=== PATIENT | female | born 1950 | race Caucasian/White ===

== ENCOUNTER → 2017-10-13 | Outpatient (CLI) | payer MEDICARE ==
[2017-06-16 10:35] VITALS: BMI 40.6
[~2017-10-13] MED LIST: ACIT25CA PO; ACIT25CA2 PO; AMOX500T10 PO; AMPI250C65 PO; CHOL10005 PO; ESOM20CA31 PO; HYDR-2966 PO; HYDR12.561 PO; IPRA15SP7 NS; LEV112 PO; LEVO-3 PO; LEVO-85 PO; LOSA50TA72 PO; MAGN100T2 PO; METO50TA19 PO; POTA-22 PO; SODI454P10 MC; TRAM-420 PO; TRIA5PAS12 TOP; VIT-9 PO; [UNRECOGNIZED DRUG - CODE] IV; [UNRECOGNIZED DRUG - CODE] PO
[2017-10-13 13:53] LABS: PLATELET COUNT, AUTOMATED 328 K/uL (150-450)
== END ==
LOC: LAB 13:35
PROVIDERS: ATTEND Internal Medicine Nephrology
DX: I15.0 Renovascular hypertension (principal); N18.4 Chronic kidney disease, stage 4 (severe); E87.2 Acidosis
CPT/HCPCS: 36415; 82040; 82306; 82310; 82374; 82435; 82565; 82947; 83970; 84100; 84132; 84295; 84520; 85025

== ENCOUNTER 2017-10-23 00:41 | Day surgery (SDC) | payer MEDICARE ==
[2017-06-16 10:35] VITALS: Ht 165.1 cm; Wt 113.9 kg
[~2017-10-23] VITALS: Ht 165.1 cm; Wt 113.9 kg
[2017-10-23] MEDS ORDERED: LIDOCAINE/SOD BICARB 8.4% SYR ID ONE (11:30)
[2017-10-23] MEDS ORDERED: NORMOSOL R SOLN(*) 1000 ML BAG 1,000 ML IV PRN (11:30)
[2017-10-23] MEDS ORDERED: OPHTHALMIC PROCEDURE 1 OU PRN (11:30)
[2017-10-23] MEDS ORDERED: OPHTHALMIC PROCEDURE 2 OU PRN ×2 (11:30)
[2017-10-23] MEDS ORDERED: MIDAZOLAM 2 MG/2 ML VIAL IVP PRN (11:30)
[2017-10-23 13:13] VITALS: BP 130/64
[2017-10-23 16:00] VITALS: BP 159/89
--- NOTE | 2017-10-23 18:12 | FOSTER LEFT EYE CATARACT ---
EVENT DATE: October 23, 2017 SURGEON: Chano Oropeza MD ANESTHESIOLOGIST: Fredo Montoya MD ANESTHESIA: MAC PREOPERATIVE DIAGNOSIS Cataract, left eye. POSTOPERATIVE DIAGNOSIS Cataract, left eye. PROCEDURE Phacoemulsification of cataractous lens with implantation of an intraocular lens , left eye. DESCRIPTION OF PROCEDURE The risks and benefits and alternatives were carefully discussed with the patient, and preoperative consent was obtained. The patient was brought to the operating room, after receiving topical anesthetic. The patient was prepped and draped using sterile technique in the usual manner. A stab incision was made and the chamber was inflated with preservative-free lidocaine. DuoVisc was injected to inflate the chamber. A 2.2 mm blade was used to enter the anterior chamber. Utrata forceps were used to tear a circular capsulorrhexis. BSS was used to hydrodissect the nucleus. Phaco tip was introduced and the nucleus was chopped into four quadrants. Each quadrant was removed. The I/A tip was used to remove the cortex. The bag was inflated with ProVisc. The intraocular lens was injected into the capsular bag. The I/A tip was used to remove the ProVisc. The wound was found to be watertight. Vigamox, Nevanac and Maxitrol ointment were placed in the patient's eye. The patient's eye was patched and the patient was taken to the recovery room in stable condition. The patient was examined in the recovery room and found to be stable, prior to release from the hospital. CORINNA
== END 2017-10-23 16:21 | disposition home or self-care (01) ==
LOC: OR 00:41
PROVIDERS: ATTEND Ophthalmology
DX: H25.812 Combined forms of age-related cataract, left eye (principal); Z96.1 Presence of intraocular lens
CPT/HCPCS: 66984; V2632

== ENCOUNTER → 2017-10-28 | Outpatient (CLI) | payer MEDICARE ==
[2017-06-16 10:35] VITALS: BMI 40.6
== END ==
LOC: LAB 13:45
PROVIDERS: ATTEND Otolaryngology
DX: K13.79 Other lesions of oral mucosa (principal)
CPT/HCPCS: 88305

== ENCOUNTER → 2018-03-23 | Outpatient (CLI) | payer MEDICARE ==
[2017-06-16 10:35] VITALS: BMI 40.6
[2018-03-23 09:54] LABS: PLATELET COUNT, AUTOMATED 301 K/uL (150-450)
== END ==
LOC: LAB 09:05
PROVIDERS: ATTEND Internal Medicine Nephrology
DX: N18.4 Chronic kidney disease, stage 4 (severe) (principal); N11.9 Chronic tubulo-interstitial nephritis, unspecified; E87.2 Acidosis
CPT/HCPCS: 36415; 82040; 82310; 82374; 82435; 82565; 82570; 82947; 84100; 84132; 84156; 84295; 84520; 85025

== ENCOUNTER → 2018-05-12 | Outpatient (REF) | payer MEDICARE ==
[2017-06-16 10:35] VITALS: BMI 40.6
== END ==
LOC: ZZSENDIN 16:13
PROVIDERS: ATTEND Family Medicine
DX: Z01.812 Encounter for preprocedural laboratory examination (principal)
CPT/HCPCS: 81001

== ENCOUNTER 2018-06-15 00:50 | Observation (INO) | payer MEDICARE ==
[2018-06-14 14:24] LABS: INR 0.99
[2018-06-15] VITALS (16 sets, daily range): BP systolic 120–170; BP diastolic 63–109
[~2018-06-15] VITALS: Ht 165.1 cm; Wt 117.0 kg
[~2018-06-15 00:50] MED LIST changes: +AMOX-359 PO; -LOSA50TA72 PO; +LOSA50TA74 PO
[2018-06-15] MEDS ORDERED: DEXAMETHASONE SOD 4 MG/ML VIAL ONE (07:14)
[2018-06-15] MEDS ORDERED: LIDOCAINE MPF 1% 5 ML VIAL ONE (07:14)
[2018-06-15] MEDS ORDERED: fentaNYL CITR 100 MCG/2 ML AMP ONE ×2 (07:14→12:09)
[2018-06-15] MEDS ORDERED: ONDANSETRON 4 MG/2 ML VIAL ONE (07:14)
[2018-06-15] MEDS ORDERED: PROPOFOL EMUL(*) 10MG/ML 20 ML 20 ML ONE (07:14)
[2018-06-15] MEDS ORDERED: KETAMINE HCL-NS 50 MG/5 ML SYR ONE (07:15)
[2018-06-15] MEDS ORDERED: BACITRACIN 50000 UNIT/VIAL 100,000 UNIT in NS 0.9% 3000 ML IRRIGATION BAG 3,000 ML IR ONE (08:30)
[2018-06-15] MEDS ORDERED: MIDAZOLAM 2 MG/2 ML VIAL IVP PRN (08:30)
[2018-06-15] MEDS ORDERED: cloNIDine EPIDUR INJ 100MCG/ML 40 MCG, ROPIVACAINE 0.5% 20 ML VIAL 25 ML, EPINEPHrine H... INJ ONE (08:30)
[2018-06-15] MEDS ORDERED: TRANEXAMIC AC 1000 MG/10ML SDV 1,000 MG in DEXTROSE 5% 50 ML BAG 50 ML IV ONE (08:30)
[2018-06-15] MEDS ORDERED: LIDOCAINE/SOD BICARB 8.4% SYR ID ONE (08:30)
[2018-06-15] MEDS ORDERED: ceFAZolin(*) 2GM/D5W 50ML 50 ML IVPB ONE (08:30)
[2018-06-15] MEDS ORDERED: PREGABALIN 150 MG CAPSULE PO ONE (08:30)
[2018-06-15] MEDS ORDERED: NORMOSOL R SOLN(*) 1000 ML BAG 1,000 ML IV PRN (08:30)
[2018-06-15] MEDS ORDERED: ACETAMINOPHEN 500 MG TAB PO ONE (08:30)
[2018-06-15] MEDS ORDERED: GLYCOPYRROLATE 0.2MG/ML 1 ML INJ ONE (10:15)
[2018-06-15] MEDS ORDERED: LR 1000 ML BAG 1000 ML IV PRN (11:45)
[2018-06-15] MEDS ORDERED: diphenhydrAMINE 50 MG/ML VIAL IVP PRN (11:45)
[2018-06-15] MEDS ORDERED: FLUSH 10 ML SYR IVP PRN (11:45)
[2018-06-15] MEDS ORDERED: MAGNESIUM CITRATE 300 ML BTL PO PRN (11:45)
[2018-06-15] MEDS ORDERED: diphenhydrAMINE 25 MG CAP PO PRN (11:45)
[2018-06-15] MEDS ORDERED: ONDANSETRON 4 MG/2 ML VIAL IVP PRN (11:45)
[2018-06-15] MEDS ORDERED: PROMETHAZINE 25 MG/ML 1 ML AMP IVP PRN (11:45)
[2018-06-15] MEDS ORDERED: MAGNESIUM HYDROXIDE* 30ML UDCP PO PRN (11:45)
[2018-06-15] MEDS ORDERED: ZOLPIDEM TARTRATE 5 MG TAB PO PRN (11:45)
[2018-06-15] MEDS ORDERED: HYDROmorphone HCL 2 MG/ML SDV IVP PRN (11:45)
[2018-06-15] MEDS ORDERED: BISACODYL 10 MG SUPP PR PRN (11:45)
--- NOTE | 2018-06-15 12:50 | RADIOLOGY IMAGING REPORT ---
FACILITY: [facility] - [place], [place] PATIENT NAME: Steffi Ballard : 1950 MR: [id number] V: [id number] EXAM DATE: ORDERING PHYSICIAN: LYNDA JEROME TECHNOLOGIST: Location: [facility] - [place] Patient: Steffi Ballard : 1950 Visit/Account:[id number] Date of Sevice: 06/15/2018 Right knee Indication: Postop total knee Comparison: X-ray examination right knee November 28, 2014. Findings: Two views demonstrate anatomic alignment status post right total knee arthroplasty. Components are w ell seated. Expected soft tissue changes. IMPRESSION: 1. Expected postoperative appearance status post right total knee arthroplasty Report Dictated By: Gregory Rehman MD at 06/15/2018 12:45 PM Report E-Signed By: Gregory Rehman MD at 06/15/2018 12:46 PM WSN:[id number]
--- NOTE | 2018-06-15 13:03 | OPERATIVE REPORT 1 ---
EVENT DATE: June 15, 2018 SURGEON: Kobe Hills MD ANESTHESIOLOGIST: Fredo Montoya MD ANESTHESIA: General plus spinal. [employer]ATION: Evens Leyva PA-C PREOPERATIVE DIAGNOSIS Right knee osteoarthritis. POSTOPERATIVE DIAGNOSIS Right knee osteoarthritis. PROCEDURE PERFORMED Right total knee arthroplasty. FINDINGS The patient had significant amount of arthritic changes associated with her knee, but was amenable for a total knee replacement. ESTIMATED BLOOD LOSS 300 mL. DRAINS None. COMPLICATIONS None. TOURNIQUET TIME 17 minutes. IMPLANTS USED DePuy DialMyAppune system, posterior stabilized size 5 right cemented femur, with a size 5 revision rotating platform tibial with a long stem, a 5 x 5 rotating platform posterior stabilized insert and a 32 mm anatomic patella. SPECIMENS None. INDICATIONS AND HISTORY This patient is a 68-year-old female who presented to my clinic for evaluation of bilateral knee pain and irritation, but more on the right than on the left. She continued to have pain and irritation despite conservative management, so she wanted to go ahead with a right total knee arthroplasty to be done today 06/15/2018. The risk and benefits were discussed with the patient and informed consent was obtained at the last clinic visit. We got her set up to do this and she understood that given her weight and activity levels and also the issues associated with her bone, that she may need a revision at some point and she understood the risks associated with that. DESCRIPTION OF PROCEDURE As the patient was brought in the operating room, she was given a spinal by anesthesia and then put in spine position. Once she was in the supine position, we were then able to induce and intubate her without any difficulty. We were able to prep and drape the right leg without any difficulty. A timeout was observed verifying the correct patient and procedure. After prep and drape we were then able to make a longitudinal incision along the anterior aspect of the knee itself. I was able to go through the skin and subcutaneous tissue which there was a lot of subcutaneous tissue in this area and then get down to the quad. Once I was down to the quad and over the knee cap, I then made a medial parapatellar approach without any difficulty and cauterized the bleeders on the way through. Once I was able to do this, I was then able to remove the anterior fat pad as well as the menisci and anterior aspects of the medial and latera sides and then I was able to get some retractors in this area and remove some of the synovitis over the superior patellar pouch. I then subluxed the patella off to the side and then was able to flex the knee in order to gain access to the femur. I then cut out the ACL and most of the PCL without any major difficulty and some of the posterior structures. I then prepped the femur for an intramedullary guide from the Attune system. Once I got the intramedullary guide, I then cut 9 mm off the distal femur more on the medial side than lateral side as the lateral size was where most of the arthritis was. I then sized the femur to a size 5 and then put in the four-in-one cutting block, cut the four cuts without any difficulty and then was able to cut the notch without any major issues. Once I did this, I then turned attention back to the tibia and after removing some of the posterior aspects off the femur. Once on the tibia, I was then able to drill the intramedullary guide once again and then take 2 mm off the lateral side to make a thin tibial cut. Once I did this, I was then able to size it to a 5 tibia. We did use the revision stem secondary due to the patient's weight and also the the small bone structure and soft bone structure associated with this with the stem in order to help this out. Once we were able to do this, I then prepped the tibia without any difficulty using the Attune system from the revision platform. I then trialed the 5 mm rotating platform poly. This had good flexion and extension and no signs of instability associated with it and so therefore this was the final poly chosen. I then prepped the patella without any major difficulty for a 32 anatomic patella. She had a very thin patella. I then was able to put an Esmarch up and then exsanguinated the limb and then put the tourniquet up in order to cement in the components. Once all of the components were put in place and cemented, I removed all the excess cement, held it in extension until the cement hardened, and then let the tourniquet down after 17 minutes. I was then able to close the medial parapatellar approach with a 0 Stratafix then followed by 2-0 Vicryl in the fat layer and then 2-0 Stratafix in the subcutaneous layer and then subcuticular 4-0 running Monocryl with a bio-occlusive dressing put over the outside. The patient was then awakened and extubated and transferred to the PACU in stable condition. We had washed her out with a antibiotic saline solution all throughout the entire case using pulsatile lavage. CORINNA
--- NOTE | 2018-06-15 14:05 | Hospitalist Consultation ---
History of Present Illness Requesting Physician Dr. Hills Reason for Consult Medical Management Chief Complaint s/p right total knee replacement History of Present Illness She was admitted s/p right total knee replacement. It is reported the surgery went well and without complication. History Problems: (1) GERD (gastroesophageal reflux disease) Status: Chronic (2) HTN (hypertension) Status: Chronic (3) Hypothyroidism Status: Chronic (4) Psoriasis Status: Chronic (5) Chronic renal failure Status: Chronic Home Meds Active Scripts Potassium Citrate (UROCIT-K) 10 Meq Tablet.er, 20 MEQ PO DAILY, #180 TAB Prov:LYNSEY CAMPBELL MD 08/06/16 Levothyroxine Sodium (LEVOTHYROXINE SODIUM) 0.112 Mg Tab, 0.112 MG PO QDAY, #30 TAB Prov:YUMIKO CAMPBELL MD 08/05/16 Reported Medications Amoxicillin (AMOXICILLIN) 250 Mg Capsule, 1 CAP PO QDAY, #15 CAPSULE 06/11/18 Vit A/Vit C/Vit E/Zinc/Copper (PRESERVISION AREDS TABLET) 1 Each Tablet, 2 EACH PO DAILY 06/16/17 Cholecalciferol (Vitamin D3) (VITAMIN D3) 1,000 Unit Tablet, 2000 UNIT PO DAILY, TAB 06/11/17 Sodium Bicarbonate (SODIUM BICARBONATE) 454 Gm Powder, 20 GM MC BID with meals 06/11/17 Acitretin (SORIATANE) 25 Mg Capsule, 25 MG PO QODAY, CAPSULE 06/11/17 Metoprolol Succinate (METOPROLOL SUCCINATE) 50 Mg Tab.er.24h, 25 MG PO QDAY, TAB 05/27/17 Hydrochlorothiazide (HYDROCHLOROTHIAZIDE) 25 Mg Tablet, 1 TAB PO QDAY, TAB 05/27/17 Esomeprazole Magnesium (NEXIUM) 20 Mg Capsule.dr, 1 CAP PO QDAY, CAP 08/05/16 Allergies: Coded Allergies: tramadol (Verified Allergy, Severe, NAUSEA/VOMITING, 06/11/18) Sulfa (Sulfonamide Antibiotics) (Verified Allergy, Intermediate, 06/11/18) HEADACHE ibuprofen (Verified Adverse Reaction, Mild, 06/11/17) pt not allowed to use because of kidney issues. codeine (Verified Adverse Reaction, Unknown, NAUSEA, 06/11/18) HEADACHE Patient History: Lymphoma MOTHER Hx Smoking: No Smoking Status: Never Smoker Caffeine Intake: Coffee Caffeine/Cups Per Day: 1 CUP A DAY Hx Alcohol Use: No Hx Substance Use Disorder: No Social Drug Use: Never History of IV Drug Use: No Review of Systems All Systems Reviewed/Normal: Yes, Except as Noted Exam Vital Signs Vital Signs Date Time Temp Pulse Resp B/P (MAP) Pulse Ox O2 Delivery O2 Flow Rate FiO2 06/15/18 13:18 96.4 57 20 161/88 (112) 100 Nasal Cannula 2.0 General Appearance: Alert, Awake, No Acute Distress, Afebrile Neuro: No Gross deficits Cardiovascular: Regular Rate and Rhythm Respiratory: No Respiratory Distress, Clear to Auscultation GI: Abd Soft and Non-Tender Psych: Alert & Oriented X3, Appropriate Mood & Affect Assessment and Plan Problems: (1) Status post total right knee replacement Status: Acute Assessment & Plan: Followed by Dr. Hills. She will be placed on Aspirin for DVT prophylaxis. She has no history of DVT or PE. (2) HTN (hypertension) Status: Chronic Assessment & Plan: She is on chronic treatment with Metoprolol and Hydrochlorothiazide. Metoprolol has been restarted with hold parameters. (3) GERD (gastroesophageal reflux disease) Status: Chronic Assessment & Plan: She is on chronic treatment with Nexium. She has been restarted on Protonix during admission. (4) Chronic renal failure Status: Chronic Assessment & Plan: She is on chronic treatment with Sodium Bicarb. Creatinine prior to surgery 1.8. Recheck BMP in the morning. (5) Psoriasis Status: Chronic Assessment & Plan: She is on chronic treatment with Soriatane. This has been held at this time. (6) Hypothyroidism Status: Chronic Assessment & Plan: She is on chronic treatment with Levothyroxine. Venous Thromboembolism Antithrombotics Is Pt On Any Antithrombotics?: No Problem Qualifiers (1) HTN (hypertension): Hypertension type: essential hypertension Qualified Codes: I10 - Essential (primary) hypertension (2) Chronic renal failure: Chronic kidney disease stage: stage 3 (moderate) Qualified Codes: N18.3 - Chronic kidney disease, stage 3 (moderate) MELI GERARDOP Jun 15, 2018 14:05
[2018-06-15] MEDS ORDERED: NS(*) 0.9% 250 ML BAG 250 ML ONE (17:37)
[2018-06-15] MEDS: ceFAZolin(*) 2GM/D5W 50ML 50 ML IVPB SCH (17:41)
[2018-06-15] MEDS: ASPIRIN 325 MG TAB PO SCH (21:25)
[2018-06-16] MEDS: ceFAZolin(*) 2GM/D5W 50ML 50 ML IVPB SCH ×2 (01:34→09:39)
[2018-06-16 03:10] VITALS: BP 154/72
[2018-06-16] MEDS: LEVOTHYROXINE SOD 0.112 MG TAB PO SCH (05:57)
[2018-06-16 07:57] VITALS: BP 146/69
--- NOTE | 2018-06-16 09:12 | Hospitalist Progress Note ---
Subjective Progress Notes Subjective She has no complaints this morning. She had no acute events overnight. Patient Complains of: Cardiovascular: No: Chest Pain Respiratory: No: Shortness of Breath Physical Exam Vital Signs Date Time Temp Pulse Resp B/P (MAP) Pulse Ox O2 Delivery O2 Flow Rate FiO2 06/16/18 07:58 93 Nasal Cannula 0.5 06/16/18 07:57 98.6 73 16 146/69 (94) Intake and Output 06/16/18 07:00 Intake Total 4880 ml Balance 4880 ml Intake Oral 480 ml IV Total 2250 ml Other 2150 ml # Voids 2 # Bowel Movements 1 General Appearance: Alert, Awake, No Acute Distress, Afebrile Neuro: No Gross deficits Cardiovascular: Regular Rate and Rhythm Respiratory: No Respiratory Distress, Clear to Auscultation GI: Soft and Non-Tender Psych: Alert & Oriented X3, Appropriate Mood & Affect Result Diagram: 06/16/18 0552 06/16/18 0552 Assessment and Plan Problems: (1) Status post total right knee replacement Status: Acute Assessment & Plan: Followed by Dr. Hills. She will be placed on Aspirin for DVT prophylaxis. She has no history of DVT or PE. (2) HTN (hypertension) Status: Chronic Assessment & Plan: She is on chronic treatment with Metoprolol and Hydrochlorothiazide. Metoprolol has been restarted with hold parameters. (3) GERD (gastroesophageal reflux disease) Status: Chronic Assessment & Plan: She is on chronic treatment with Nexium. She has been restarted on Protonix during admission. (4) Chronic renal failure Status: Chronic Assessment & Plan: She is on chronic treatment with Sodium Bicarb. Creatinine prior to surgery 1.8. Creatinine 1.6 this morning. (5) Psoriasis Status: Chronic Assessment & Plan: She is on chronic treatment with Soriatane. This has been held at this time. (6) Hypothyroidism Status: Chronic Assessment & Plan: She is on chronic treatment with Levothyroxine. (7) H/O ureteroileostomy Assessment & Plan: She did have trouble urinating last night, but now has resolved. Continue to monitor. Exam Sepsis Risk: No Definite Risk Problem Qualifiers (1) HTN (hypertension): Hypertension type: essential hypertension Qualified Codes: I10 - Essential (primary) hypertension (2) Chronic renal failure: Chronic kidney disease stage: stage 3 (moderate) Qualified Codes: N18.3 - Chronic kidney disease, stage 3 (moderate) MELI GERARDO Jun 16, 2018 09:12
[2018-06-16 09:36] VITALS: Ht 165.1 cm; Wt 117.0 kg
[2018-06-16] MEDS: METOPROLOL SUCC XL 25 MG TABCR PO SCH ×2 (09:38→20:25)
[2018-06-16] MEDS: AMOXICILLIN 250 MG CAP PO SCH (09:38)
[2018-06-16] MEDS: PANTOPRAZOLE SOD 40 MG TABEC PO SCH (09:38)
[2018-06-16] MEDS: SODIUM BICARBONATE 650 MG TAB PO SCH ×2 (09:39→12:17)
[2018-06-16 11:26] VITALS: BP 151/83
[2018-06-16 14:39] VITALS: BP 149/80
[2018-06-16 19:11] VITALS: BP 128/65
[2018-06-16] MEDS: ASPIRIN 325 MG TAB PO SCH (20:23)
[2018-06-17] VITALS (8 sets, daily range): BP systolic 133–185; BP diastolic 69–85
[2018-06-17] MEDS: LEVOTHYROXINE SOD 0.112 MG TAB PO SCH (05:50)
[2018-06-17] MEDS: PANTOPRAZOLE SOD 40 MG TABEC PO SCH (08:10)
[2018-06-17] MEDS: SODIUM BICARBONATE 650 MG TAB PO SCH ×2 (08:11→11:59)
[2018-06-17] MEDS: AMOXICILLIN 250 MG CAP PO SCH (08:11)
[2018-06-17] MEDS ORDERED: ASPI-757 PO (09:55)
--- NOTE | 2018-06-17 10:00 | Hospitalist Progress Note ---
Subjective Progress Notes Subjective She has no complaints this morning. She had no acute events overnight. Patient Complains of: Cardiovascular: No: Chest Pain Respiratory: No: Shortness of Breath Physical Exam Vital Signs Date Time Temp Pulse Resp B/P (MAP) Pulse Ox O2 Delivery O2 Flow Rate FiO2 06/17/18 08:03 98.3 74 20 143/69 (93) 94 Nasal Cannula 1.0 Intake and Output 06/17/18 01:00 Intake Total 820 ml Balance 820 ml Intake Oral 720 ml IV Total 100 ml # Voids 3 # Bowel Movements 1 General Appearance: Alert, Awake, No Acute Distress, Afebrile Neuro: No Gross deficits Cardiovascular: Regular Rate and Rhythm Respiratory: No Respiratory Distress, Clear to Auscultation Psych: Alert & Oriented X3, Appropriate Mood & Affect Result Diagram: 06/17/1852106/16/18 0552 Assessment and Plan Problems: (1) Status post total right knee replacement Status: Acute Assessment & Plan: Followed by Dr. Hills. She will be placed on Aspirin for DVT prophylaxis. She has no history of DVT or PE. (2) HTN (hypertension) Status: Chronic Assessment & Plan: She is on chronic treatment with Metoprolol and Hydrochlorothiazide. Both medications have been restarted with hold parameters. (3) GERD (gastroesophageal reflux disease) Status: Chronic Assessment & Plan: She is on chronic treatment with Nexium. She has been restarted on Protonix during admission. (4) Chronic renal failure Status: Chronic Assessment & Plan: She is on chronic treatment with Sodium Bicarb. Creatinine prior to surgery 1.8. Creatinine 1.6 post-operatively. (5) Psoriasis Status: Chronic Assessment & Plan: She is on chronic treatment with Soriatane. She will resume like usual when she gets home. (6) Hypothyroidism Status: Chronic Assessment & Plan: She is on chronic treatment with Levothyroxine. (7) H/O ureteroileostomy Assessment & Plan: She did have trouble urinating after surgery, but now has resolved. Exam Sepsis Risk: No Definite Risk Problem Qualifiers (1) HTN (hypertension): Hypertension type: essential hypertension Qualified Codes: I10 - Essential (primary) hypertension (2) Chronic renal failure: Chronic kidney disease stage: stage 3 (moderate) Qualified Codes: N18.3 - Chronic kidney disease, stage 3 (moderate) MELI GERARDOP Jun 17, 2018 10:00
[2018-06-17] MEDS: ASPIRIN 325 MG TAB PO SCH (21:33)
[2018-06-17] MEDS: METOPROLOL SUCC XL 25 MG TABCR PO SCH (21:39)
[2018-06-18] MEDS: LEVOTHYROXINE SOD 0.112 MG TAB PO SCH (06:23)
[2018-06-18] MEDS ORDERED: PER PO (07:14)
[2018-06-18] MEDS: AMOXICILLIN 250 MG CAP PO SCH (08:34)
[2018-06-18] MEDS: SODIUM BICARBONATE 650 MG TAB PO SCH (08:34)
[2018-06-18] MEDS: PANTOPRAZOLE SOD 40 MG TABEC PO SCH (08:34)
[2018-06-18] MEDS ORDERED: HYDROCHLOROTHIAZIDE 25 MG TAB PO SCH (09:00)
--- NOTE | 2018-06-18 09:55 | Hospitalist Progress Note ---
Subjective Progress Notes Subjective She has no complaints this morning. She had no acute events overnight. Patient Complains of: Cardiovascular: No: Chest Pain Respiratory: No: Shortness of Breath Physical Exam Vital Signs Date Time Temp Pulse Resp B/P (MAP) Pulse Ox O2 Delivery O2 Flow Rate FiO2 06/17/18 23:14 99.6 93 20 157/69 (98) 94 Nasal Cannula 1.0 Intake and Output 06/18/18 07:00 Intake Total 830 ml Balance 830 ml Intake Oral 830 ml # Voids 2 General Appearance: Alert, Awake, No Acute Distress, Afebrile Neuro: No Gross deficits Cardiovascular: Regular Rate and Rhythm Respiratory: No Respiratory Distress, Clear to Auscultation GI: Soft and Non-Tender Psych: Alert & Oriented X3, Appropriate Mood & Affect Result Diagram: 06/18/1851006/18/18510 Assessment and Plan Problems: (1) Status post total right knee replacement Status: Acute Assessment & Plan: Followed by Dr. Hills. She will be placed on Aspirin for DVT prophylaxis. She has no history of DVT or PE. (2) HTN (hypertension) Status: Chronic Assessment & Plan: She is on chronic treatment with Metoprolol and Hydrochlorothiazide. Both medications have been restarted with hold parameters. (3) GERD (gastroesophageal reflux disease) Status: Chronic Assessment & Plan: She is on chronic treatment with Nexium. She has been restarted on Protonix during admission. (4) Chronic renal failure Status: Chronic Assessment & Plan: She is on chronic treatment with Sodium Bicarb. Creatinine prior to surgery 1.8. Creatinine 1.7 post-operatively. (5) Psoriasis Status: Chronic Assessment & Plan: She is on chronic treatment with Soriatane. She will resume like usual when she gets home. (6) Hypothyroidism Status: Chronic Assessment & Plan: She is on chronic treatment with Levothyroxine. (7) H/O ureteroileostomy Assessment & Plan: She did have trouble urinating after surgery, but now has resolved. Exam Sepsis Risk: No Definite Risk Problem Qualifiers (1) HTN (hypertension): Hypertension type: essential hypertension Qualified Codes: I10 - Essential (primary) hypertension (2) Chronic renal failure: Chronic kidney disease stage: stage 3 (moderate) Qualified Codes: N18.3 - Chronic kidney disease, stage 3 (moderate) MELI GERARDOP Jun 18, 2018 09:55
== END 2018-06-18 11:35 | disposition home or self-care (01) ==
LOC: OR 00:50 → MED 13:10
PROVIDERS: ADMIT Orthopaedic Surgery; ATTEND Orthopaedic Surgery
DX: M17.11 Unilateral primary osteoarthritis, right knee (principal); E03.9 Hypothyroidism, unspecified; I12.9 Hypertensive chronic kidney disease with stage 1 through stage 4 chronic kidney disease, or unspecified chronic kidney disease; N18.3 Chronic kidney disease, stage 3 (moderate); L40.9 Psoriasis, unspecified; K21.9 Gastro-esophageal reflux disease without esophagitis
CPT/HCPCS: 27447; 36415; 73560; 85014; 85018; 85610; 86850; 86900; 86901; 97110; 97116; 97161; 97530; A9270; C1713; C1776; G0378; J0171; J0735; J1100; J2001; J2250; J2405; J2704; J2795; J3010; J3490; J7050; J7060; 82310; 82374; 82435; 82565; 82947; 84132; 84295; 84520; J0690

== ENCOUNTER 2018-11-04 00:59 | Observation (INO) | payer MEDICARE ==
[2018-06-16 09:36] VITALS: Ht 165.1 cm; Wt 111.6 kg
[2018-10-21 14:02] LABS: PLATELET COUNT, AUTOMATED 369 K/uL (150-450)
--- NOTE | 2018-10-21 14:47 | EKG ---
FACILITY: [facility] - [place]IENT NAME: TIRSO BRIGGS : [id number] MR: [id number] V: [id number] EXAM DATE: ORDERING PHYSICIAN: HAYDER ERNANDEZ TECHNOLOGIST: SIDDHARTHA Test Reason : PRE OP Blood Pressure : / mmHG Vent. Rate : 078 BPM Atrial Rate : 078 BPM P-R Int : 132 ms QRS Dur : 078 ms QT Int : 364 ms P-R-T Axes : 025 009 042 degrees QTc Int : 414 ms Normal sinus rhythm Nonspecific ST abnormality Abnormal ECG When compared with ECG of 03-DEC-2016 11:38, AL interval has increased Questionable change in QRS axis Confirmed by HAYDER SMALL ([id number]) on 10/21/2018 5:58:53 PM Referred By: NELLIE Confirmed By:HAYDER SMALL
[~2018-11-04] VITALS: Ht 165.1 cm; Wt 111.6 kg
[2018-11-04] VITALS (9 sets, daily range): BP systolic 114–166; BP diastolic 55–94
[~2018-11-04 00:59] MED LIST changes: +ASPI-757 PO; +CLO10 MT; +LIDOCAINE/SOD BICARB 8.4% SYR ID ONE; -LOSA50TA74 PO; +LOSA50TA80 PO; +MIDAZOLAM 2 MG/2 ML VIAL IVP PRN; +NORMOSOL R SOLN(*) 1000 ML BAG 1,000 ML IV PRN; +PER PO
[2018-11-04] MEDS ORDERED: fentaNYL CITR 250 MCG/5 ML AMP ONE (11:37)
[2018-11-04] MEDS ORDERED: PROPOFOL EMUL(*) 10MG/ML 20 ML 20 ML ONE (11:37)
[2018-11-04] MEDS ORDERED: LIDOCAINE 2% IV 100 MG/5ML SYR ONE (11:38)
[2018-11-04] MEDS ORDERED: LIDO/EPI 1% MDV 1:100,000 20ML INFIL ONE (12:26)
[2018-11-04] MEDS ORDERED: LIDOCAINE/SOD BICARB 8.4% SYR ID ONE (12:30)
[2018-11-04] MEDS ORDERED: NORMOSOL R SOLN(*) 1000 ML BAG 1,000 ML IV PRN (12:30)
[2018-11-04] MEDS ORDERED: MIDAZOLAM 2 MG/2 ML VIAL IVP PRN (12:30)
[2018-11-04] MEDS ORDERED: ROCURONIUM BROM 10 MG/ML 10 ML ONE (13:21)
[2018-11-04] MEDS ORDERED: KETAMINE HCL 200 MG/20 ML MDV ONE ×2 (13:23→14:20)
[2018-11-04] MEDS ORDERED: SUGAMMADEX SOD 200 MG/2 ML SDV ONE (13:24)
[2018-11-04] MEDS ORDERED: ONDANSETRON 4 MG/2 ML VIAL ONE (13:26)
[2018-11-04] MEDS ORDERED: DEXAMETHASONE SOD PHOS 10MG/ML ONE (13:26)
[2018-11-04] MEDS ORDERED: CLINDAMYCIN 300 MG/2 ML VIAL ONE (13:33)
[2018-11-04] MEDS ORDERED: NS(*) 0.9% 100 ML BAG 100 ML ONE (13:33)
[2018-11-04] MEDS ORDERED: BUPIVACAIN 0.25% INJ 50ML VIAL ONE (13:37)
[2018-11-04] MEDS ORDERED: BUPIV/EPI 0.25% 1:200,000 50ML INFIL ONE (13:37)
[2018-11-04] MEDS ORDERED: fentaNYL CITR 100 MCG/2 ML AMP ONE ×5 (13:43→16:56)
[2018-11-04] MEDS ORDERED: LR(*) 1000 ML BAG 1,000 ML IV PRN (15:45)
[2018-11-04] MEDS ORDERED: LABETALOL HCL 20 MG/4 ML SYR ONE (15:45)
[2018-11-04] MEDS ORDERED: PROMETHAZINE 25 MG/ML 1 ML AMP IVP PRN (15:45)
[2018-11-04] MEDS ORDERED: ONDANSETRON 4 MG ODT TABDP SL PRN (15:45)
--- NOTE | 2018-11-04 15:45 | Post Operative Note ---
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
[2018-11-04] MEDS ORDERED: KETOROLAC 15 MG/ML VIAL IVP SCH (17:00)
[2018-11-04] MEDS: DEXAMETHASONE SOD PHOS 10MG/ML IVP SCH (17:00)
[2018-11-04] MEDS: [UNRECOGNIZED DRUG - OTHER] IVPB SCH (18:30)
[2018-11-04] MEDS: SULBACT IVPB SCH (18:30)
[2018-11-04] MEDS: NS 0.9% IVPB SCH (18:30)
[2018-11-04] MEDS: AMPICILLIN IVPB SCH (18:30)
--- NOTE | 2018-11-04 19:02 | OPERATIVE REPORT 1 ---
EVENT DATE: November 04, 2018 SURGEON: Ori Moreno MD ANESTHESIOLOGIST: Julian Arriaga MD ANESTHESIA: General endotracheal. PROCEDURES PERFORMED 1. Left partial glossectomy. 2. Removal of teeth #18 and #19. PREOPERATIVE DIAGNOSES 1. Left lateral oral tongue leukoplakia. 2. History of oral squamous cell carcinoma. POSTOPERATIVE DIAGNOSES 1. Left lateral oral tongue leukoplakia. 2. History of oral squamous cell carcinoma. INDICATIONS Please refer to the preoperative note. DESCRIPTION OF PROCEDURE The patient was positively identified in the preoperative area. She was accompanied there by her . Risks again explained included, but were not limited to bleeding, infection, injury to the sublingual duct, injuries to surrounding nerves and/or vessels and those associated with anesthesia. She acknowledged understanding of those risks. She was then brought back to the operative suite, laid supine on the operative table, and anesthesia was administered. Once asleep, the patient was positioned and prepped and draped in the usual sterile fashion. A side-biting mouth retractor was placed on the right. Approximately 5 mL of 0.25% Marcaine with epinephrine were infiltrated into the operative field. I then carefully mapped out the patient's leukoplakia. This just abutted the left lingual duct, extended into the attached dentition of abutting teeth 18 and 19 and into the retromolar trigone. Teeth 18 and 19 were palpably loose. These were carefully extracted and given to the patient's at the conclusion of the case. The leukoplakia as previously described was widely excised with the Bovie electrocautery. The defect was closed primarily anteriorly and posteriorly, and then the mid section was covered with AlloDerm. This was sutured into place. The defect measured approximately 4 x 8 cm. The patient was then turned to Anesthesia for emergence. Estimated blood loss was 50 mL. There were no complications. MTDD
[2018-11-04] MEDS: HYDROCOD/ACETAMIN 2.5-108/5 ML 5 ML UDC PO PRN (19:26)
[2018-11-05] MEDS: AMPICILLIN IVPB SCH ×5 (00:16→23:46)
[2018-11-05] MEDS: SULBACT IVPB SCH ×5 (00:16→23:46)
[2018-11-05] MEDS: NS 0.9% IVPB SCH ×5 (00:16→23:46)
[2018-11-05] MEDS: [UNRECOGNIZED DRUG - OTHER] IVPB SCH ×5 (00:16→23:46)
[2018-11-05] MEDS: DEXAMETHASONE SOD PHOS 10MG/ML IVP SCH ×2 (00:17→09:15)
[2018-11-05 03:04] VITALS: BP 135/63
[2018-11-05 07:28] VITALS: BP 141/83
--- NOTE | 2018-11-05 07:37 | ENT Progress Note ---
Subjective Progress Notes Subjective Mary Anne liquid diet. Pain controlled with lortab but ordoñez. Physical Exam Vital Signs Date Time Temp Pulse Resp B/P (MAP) Pulse Ox O2 Delivery O2 Flow Rate FiO2 11/05/18 03:04 98.6 68 16 135/63 (87) 93 Nasal Cannula 2.0 Intake and Output0 11/05/18 07:00 Intake Total 2410 ml Balance 2410 ml Intake Oral 250 ml IV Total 1910 ml Other 250 ml # Voids 2 General Appearance: Alert, Awake ENT: Other (sutures intact, alloderm intact) Assessment and Plan Problems: (1) Leukoplakia of tongue Status: Acute Assessment & Plan: HLIV. Will see if she doesn't tolerate oxycodone elixir better. Plan discharge home later this afternoon versus tomorrow morning pending pain control and adequate po. Exam Sepsis Risk: No Definite Risk BREANNA BALLARD JR, MD Nov 05, 2018 07:37
[2018-11-05] MEDS ORDERED: [UNRECOGNIZED DRUG - OTHER] TP PRN (09:05)
[2018-11-05] MEDS ORDERED: VITAMIN A TP PRN (09:05)
[2018-11-05] MEDS: PANTOPRAZOLE SOD 40 MG TABEC PO SCH (09:09)
[2018-11-05] MEDS: HYDROCHLOROTHIAZIDE 25 MG TAB PO SCH (09:09)
[2018-11-05] MEDS: METOPROLOL SUCC XL 25 MG TABCR PO SCH (09:09)
[2018-11-05] MEDS: POTASSIUM CITRATE 540 MG TABCR PO SCH (09:15)
--- NOTE | 2018-11-05 11:49 | Medical Nutrition Therapy ---
Nutrition Anthropometrics Height (Inches): 65.00 Height (Calculated Centimeters: 165.883533 Weight (Pounds): 246 Weight (Calculated Kilograms): 111.584 BMI: 40.9 Bg Nutrition Score: Adequate Bg Nutrition Risk Score: 20 Dietary Referral Nutrition Risk Factors: Nutrition Risk Comment: n/a Physical Findings Physical Appearance: Morbidly Obese 40+ Skin Appearance Skin Appearance: Edema Edema Location Modifier: Both Edema Location: Foot Type of Edema: Degree of Edema: Gastrointestinal Symptoms GI Symtoms: Tube Present: Bowel Sounds: Recent Bowel Pattern: Stool Characteristics: Nutritional Diagnosis Nutritional Risk Acuity 2: Head/Neck/GI Cancer (tongue Ca), Swallowing Problem Nutritional Risk Acuity 3: Morbid Obesity Nutritional Risk Acuity 4: Good Appetite Past Medical History: Hx of GERD, HTN, hypothyroidism, psoriasis, and chronic renal failure. Nutritional Acuity: 2-Moderate Nutrition Diagnosis: Swallowing Difficulties Nutrition Etiology: Physiological Causes Nutrition Problem/Etiology/Sym: R/t Leukoplakia of tongue with surgery AEB sore mouth, swelling Adjusted Energy Requirement Re: 2775 (25kcal/kg) Protein Requirement: 111 (1gm/kg) Fluid Requirement: 2775 (25ml/kg) Diet Type: Diet as Tolerated ISA/REG Nutrition Intervention: Cont diet as ordered, Encourage intake, Between meal supplement Additional Diet Restrictions: PUT PROTEIN POWDER IN APPROPRIATE FOODS Diet Comment To [facility]: OFFER NUTR SUPPLEMENT Nutritional Education Nutrition Education Topic: Other (jenungmaria teresa Ca) Learning Readiness: Interested Teaching Methods: Discussion, Handout Response to Teaching: Verbalize understanding Teaching Recipient: Patient Nutrition Counseling: Pt s/p Leukoplakia of tongue. Pt states difficulty chewing . Reviewed handout for sore mouth. Recommend pt try nutr supplments and soft, low acid foods. Pt states has had this surgery in past so was aware of trying to get more protein from supplments and liquids. Nutrition Monitoring & Eval Nutrition Goals: Eat 75-100% Meal RD Patient Assessment Time: [address] Assessment Type: RD Assessment Patient Nutrition Acuity: 2-Moderate Follow Up Date: Nov 10, 2018 Nutritional Comment: 11/05 Pt admitted for Leukoplakia of tongue. Pt is on regular diet and ate 50% of small portions. Provided handout for sore mouth. Pt states has had procedure before and took mostly liquids. Enouraged sft texture and liquid supplement to ensure adequate protein for healing. will cont to monitor. SWAPNA MENDEZ Nov 05, 2018 11:49
[2018-11-05 17:00] VITALS: BP 136/73
[2018-11-05 19:20] VITALS: BP 152/77
[2018-11-05] MEDS: HYDROCOD/ACETAMIN 2.5-108/5 ML 5 ML UDC PO PRN (23:45)
[2018-11-06] MEDS: [UNRECOGNIZED DRUG - OTHER] IVPB SCH (05:38)
[2018-11-06] MEDS: SULBACT IVPB SCH (05:38)
[2018-11-06] MEDS: AMPICILLIN IVPB SCH (05:38)
[2018-11-06] MEDS: NS 0.9% IVPB SCH (05:38)
[2018-11-06 06:52] VITALS: BP 147/74
[2018-11-06] MEDS: HYDROCOD/ACETAMIN 2.5-108/5 ML 5 ML UDC PO PRN (08:33)
[2018-11-06] MEDS: METOPROLOL SUCC XL 25 MG TABCR PO SCH (08:34)
[2018-11-06] MEDS: POTASSIUM CITRATE 540 MG TABCR PO SCH (08:34)
[2018-11-06] MEDS: HYDROCHLOROTHIAZIDE 25 MG TAB PO SCH (08:34)
[2018-11-06] MEDS: PANTOPRAZOLE SOD 40 MG TABEC PO SCH (08:34)
[2018-11-06] MEDS ORDERED: AMOX-559 PO (09:36)
[2018-11-06] MEDS ORDERED: HYDR-653 PO (09:36)
--- NOTE | 2018-11-06 09:40 | Hospitalist Depart ---
Discharge Summary Reason for Hosp/Final Diag: (1) Leukoplakia of tongue Status: Resolved Hospital Course & Plan: Patient underwent left partial glossectomy 11/04. Admitted for pain control and IV hydration until tolerating po. Patient with adequate pain control and tolerating a soft diet. Departure Weight (Pounds): 246 Condition: Improved Discharge: Home Discharge Code Status: Full Code Time Spent: < 30 min Discharge Instructions Home Meds Active Scripts Doxycycline Hyclate (DOXYCYCLINE HYCLATE) 100 Mg Tablet.dr, 100 MG PO BID for 7 Days, #14 TAB Prov:BREANNA BALLARD JR, MD 11/10/18 Amoxicillin/Pot Clav 875-125 Mg Tab (AUGMENTIN 875-125 TABLET) 1 Each Tablet, 1 TAB PO Q12H for 10 Days, #20 TAB Prov:BREANNA BALLARD JR, MD 11/06/18 Potassium Citrate (UROCIT-K) 10 Meq Tablet.er, 20 MEQ PO DAILY, #180 TAB Prov:LYNSEY CAMPBELL MD 08/06/16 Levothyroxine Sodium (LEVOTHYROXINE SODIUM) 0.112 Mg Tab, 0.112 MG PO QDAY, #30 TAB Prov:YUMIKO CAMPBELL MD 08/05/16 Reported Medications Cholecalciferol (Vitamin D3) (VITAMIN D3) 1,000 Unit Tablet, 2000 UNIT PO DAILY, TAB 06/11/17 Sodium Bicarbonate (SODIUM BICARBONATE) 454 Gm Powder, 20 GM MC BID with meals 06/11/17 Acitretin (SORIATANE) 25 Mg Capsule, 25 MG PO QWEEK, CAPSULE 06/11/17 Metoprolol Succinate (METOPROLOL SUCCINATE) 50 Mg Tab.er.24h, 25 MG PO QDAY, TAB 05/27/17 Hydrochlorothiazide (HYDROCHLOROTHIAZIDE) 25 Mg Tablet, 1 TAB PO QDAY, TAB 05/27/17 Esomeprazole Magnesium (NEXIUM) 20 Mg Capsule.dr, 1 CAP PO QDAY, CAP 08/05/16 Discontinued Reported Medications Amoxicillin (AMOXICILLIN) 250 Mg Capsule, 1 CAP PO QDAY, #15 CAPSULE 06/11/18 Discontinued Scripts Hydrocodone Bit/Acetaminophen (NORCO 5-325 TABLET) 1 Each Tablet, 1 EACH PO Q6H PRN for PAIN for 7 Days, #15 TAB Prov:BREANNA BALLARD JR, MD 11/06/18 Diet: Regular Activity: As Tolerated Special Instructions: Advance diet as tolerated. Swish and spit with water after eating solid food. E-Rx Augmentin and [place] [facility]. Follow up with Dr. Ballard on November 10, 2018 at 11:15 am. Venous Thromboembolism Antithrombotics Is Pt On Any Antithrombotics?: No BREANNA BALLARD JR, MD Nov 06, 2018 09:40
[2018-11-10] MEDS ORDERED: DOXY-228 PO (11:27)
[2018-11-10] MEDS ORDERED: METH125V13 IM (11:52)
[2018-11-10] MEDS ORDERED: CEFT1VIA63 IM (11:52)
[2018-11-11] MEDS ORDERED: CEFT1VIA63 IM (10:43)
[2018-11-12] MEDS ORDERED: CEFT1VIA63 IJ (10:25)
== END 2018-11-06 09:40 | disposition home or self-care (01) ==
LOC: OR 00:59 → MED 17:30
PROVIDERS: ADMIT Otolaryngology; ATTEND Otolaryngology
DX: K13.21 Leukoplakia of oral mucosa, including tongue (principal); I10 Essential (primary) hypertension; E05.90 Thyrotoxicosis, unspecified without thyrotoxic crisis or storm
CPT/HCPCS: 36415; 41120; 84443; 85025; 88305; 93005; A9270; G0378; J0295; J1100; J2001; J2405; J2704; J3010; J3490; J7050; J7120; Q4116; 82310; 82374; 82435; 82565; 82947; 84132; 84295; 84520

== ENCOUNTER → 2018-12-28 | Outpatient (CLI) | payer MEDICARE ==
[2018-06-16 09:36] VITALS: BMI 42.9
[~2018-12-28] MED LIST changes: +AMOX-559 PO; +CEFT1VIA63 IJ; +CEFT1VIA63 IM; +DOXY-228 PO; +FLUC100T35 PO; +HYDR-653 PO; -LIDOCAINE/SOD BICARB 8.4% SYR ID ONE; +METH125V13 IM; -MIDAZOLAM 2 MG/2 ML VIAL IVP PRN; -NORMOSOL R SOLN(*) 1000 ML BAG 1,000 ML IV PRN; +VALA100062 PO
== END ==
LOC: LAB 10:55
PROVIDERS: ATTEND Internal Medicine Nephrology
DX: N18.4 Chronic kidney disease, stage 4 (severe) (principal); N20.0 Calculus of kidney; E87.2 Acidosis
CPT/HCPCS: 36415; 82040; 82306; 82310; 82374; 82435; 82565; 82947; 83970; 84100; 84132; 84295; 84520; 85018

== ENCOUNTER 2019-01-11 10:56 | Outpatient (RCR) | payer MEDICARE ==
[2018-06-16 09:36] VITALS: BMI 42.9
--- NOTE | 2019-01-13 14:53 | SPEECH INITIAL EVALUATION ---
SPEECH THERAPY ASSESSMENT Physician: Pavel Saucedo MD Clinician: Jessica Asif MS, CCC-INTERNAL MEDICINE DOCTOR Type of Assessment: Dysphagia Evaluation Patient: Steffi Ballard : 1950, 68yrs Evaluation Date: 01-11-19 BACKGROUND The patient is a 68 year old female who receives treatment at [facility] for leukoplakia along the left lateral tongue initially diagnosed in May of 2017 with partial glossectomy on June 15, 2017. The cancer returned in 2018 and the patient underwent a 2nd left partial glossectomy on November 14, 2018. Patient was referred for a swallow evaluation secondary to reported difficulty swallowing. The patient reports dysphagia symptoms began when she began taking a prescription medication for thrush, she was unsure of the medication name. . She read in written material provided with the medication that dysphagia was a possible side effect and stopped taking the medication. She reports that dysphagia symptoms resolved quickly after she discontinued the medication. PREVIOUS LEVEL OF FUNCTION: Primary Medical Diagnosis: leukoplakia left lateral tongue Prior Hospitalization: See chart for details. Medical Complications/Past Medical History: See chart for details LOC / Participation: alert and cooperative Follows instructions: yes Orientation: oriented to person, place, time, situation Functional Communication Deficits impact swallow function/safety, or response to therapy: No VOICE Vocal Deficits: No Changes to vocal quality: denies SPEECH Distortions of speech sounds noted intermittently throughout the assessment. Patient is aware of these speech errors but reports she is not particularly concerned about them at this time. Speech intelligibility is not significantly reduced. DYSPHAGIA ASSESSMENT SUMMARY Xerostomia: no Reports thickened saliva that improves with increased liquid intake throughout the day Reports ageusia Reports appetite is improving Supplemental Oxygen Use: No COPD Dx: No Oral Structure and Function: Missing left lower molars. Pt reports dentition interferes with mastication. She tries to chew primarily on R side. She avoids difficult to chew foods Pain with Swallow: Pt reports lingual soreness at surgical site Oral / Laryngeal Motor Function: -Lingual: reduced lingual ROM bilaterally as well as extension and retraction. -All other oral/laryngeal function WNL FOOD & LIQUID TRIALS Dysphagia Risk Evaluation Trial (DREP) - The water swallow test: pass -Solids test: pass. Reduced bolus manipulation though oral cavity was clear following deglutition. Pt reports bolus manipulation is improving. EATING ASSESSMENT TOOL (EAT 10) : a patient self-scored rating scale of swallowing problems. Possible responses are based on a 1-4 numeric scale with 0= no problem, 4=severe problem. A score of 3 or higher may indicate a swallowing problem. 1. My swallowing problem has caused me to lose weight. 0 2. My swallowing problem interferes with my ability to go out for meals. 0 3. Swallowing liquids takes extra effort. 0 4. Swallowing solids takes extra effort. 0 5. Swallowing pills takes extra effort. 0 6.Swallowing is painful 0 7. The pleasure of eating is affected by my swallowing. *(d/t to dentition) 1 8. When I swallow, food sticks in my throat. 0 9. I cough when I eat. 0 10. Swallowing is stressful. 0 Total Score: 1; indicates a swallowing problem is less likely SUMMARY The patient exhibits and reports no s/s of pharyngeal dysphagia at this time. She reports she did experience pharyngeal dysphagia when she began taking a prescription medication for thrush. She reports that symptoms resolved quickly after she discontinued the medication. Reduced lingual function results in less efficient bolus formation and manipulation however the patient was able to clear her oral cavity of solids. She reports that bolus management is improving. Her primary complaint is difficulty with mastication d/t absent left lower molars. She is successfully managing this by avoiding difficulty to chew foods and trying to eat primarily on her R side. Lingual ROM is extremely limited. Instructions for lingual stretching exercises were provided. RECOMMENDATIONS Speech Therapy not recommended at this time. It is recommended the patient perform lingual stretching exercises as instructed and return to once her lingual pain is resolved. At that time strengthening exercises can be addressed if appropriate as well as motor speech therapy if speech sound distortions persist. provided verbal and written education at the time of the assessment. Thank you for this referral. Please call [phone] Jessica Asif M.S., CCC-INTERNAL MEDICINE DOCTOR MTDD
== END 2019-01-11 18:00 | disposition home or self-care (01) ==
LOC: ST 10:56
PROVIDERS: ATTEND Nurse Practitioner
DX: C02.9 Malignant neoplasm of tongue, unspecified (principal)

== ENCOUNTER 2019-02-18 09:30 | Outpatient (RCR) | payer MEDICARE ==
[2018-06-16 09:36] VITALS: BMI 42.9
--- NOTE | 2018-11-25 14:18 | PURVIANCE CONSULTATION ---
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 CHIEF COMPLAINT Discussion of postoperative radiotherapy. 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 Ori Moreno with a mass along her tongue. The patient underwent partial glossectomy on June 15, 2017 under the care of Dr. Moreno. Pathology revealed a raised verrucous lesion measuring 2.0 cm in greatest dimension. The margins were reported as negative, although no distance measurement was made. The invasive squamous cell carcinoma extended into the superior portion of the muscle but was not noted to have deep muscle invasion. The patient was observed and was noted by Dr. Moreno to have a nodule or mass progressing in the original glossectomy site on the left side. The patient was brought back to the operating room for a left partial glossectomy on November 14, 2018. Pathology from this surgery revealed a superficially invasive squamous cell carcinoma. The margins were negative. No depth of invasion was noted. The margins were noted to be negative, however. The distance of the invasive tumor to the margin was not reported. The microscopic dimensions of the tumor were not reported. The patient postoperatively has been referred to radiation oncology to discuss postoperative radiotherapy. On presentation today, the patient does continue to have some significant soreness along her left lateral tongue. The patient is swallowing soft solid foods and liquids. She has lost approximately 15 pounds since her recent surgery. The patient denies any trismus or ear pain. PAST MEDICAL HISTORY 1. Renal insufficiency. 2. 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 3. Status post hysterectomy. MEDICATIONS Vitamin D3, sodium bicarbonate, acitretin, metoprolol, Hydrochlorothiazide, potassium citrate, levothyroxine, esomeprazole, Nexium. ALLERGIES TRAMADOL, SULFA, IBUPROFEN, CODEINE. SOCIAL HISTORY [place]. Patient is a nonsmoker. No significant alcohol or drug use. FAMILY HISTORY Mother with lymphoma. PHYSICAL EXAMINATION CONSTITUTIONAL AND GENERAL APPEARANCE: The patient is sitting comfortably in the chair, in no acute distress. HEENT: Pupils are equal, round and reactive to light and accommodation. On inspection of the oral cavity, the patient does have some fibrinous granulation tissue along the lateral central portion of her left tongue. There is no palpable nodularity of this area. Patient's dentition is intact. NECK: Supple, trachea is midline. No masses. LUNGS: Clear to auscultation and percussion bilaterally. CARDIOVASCULAR: Regular rate and rhythm. Normal S1 and S2. No murmurs, rubs or gallops. ABDOMEN: Soft and nontender with active bowel sounds. No hepatosplenomegaly. EXTREMITIES: No edema, clubbing or cyanosis. NEUROLOGIC: The patient is alert and oriented x3. Motor strength is 5/5 in upper and lower extremities bilaterally. PERFORMANCE STATUS: 90% IMPRESSION Squamous cell carcinoma of the left lateral oral tongue. Pathologic: T2 NX diagnosed in 2017, status post left partial glossectomy. The patient had an area of recurrence, which appears to be roughly 1 cm in size. She is now status post repeat left partial glossectomy with negative margins. The patient now presents postoperatively to discuss postoperative radiotherapy as an adjuvant treatment for her squamous cell carcinoma of the oral tongue. PLAN The patient's case will be discussed with pathology and the slides from both of her surgeries will be reviewed. We will attempt to obtain a depth of invasion for both her original tumor as well as her recurrent tumor as this will inform her risks of lymphatic invasion to the neck and whether she needs elective treatment of her neck. The patient is at substantial risk for disease recurrence given the history of recurrence following surgical resection. As such, we would offer the patient postoperative radiotherapy to her tumor bed site as well as likely the ipsilateral first echelon lymph nodes of the neck. The patient will undergo a PET CT scan and will follow up with radiation oncology to review the stating PET CT scan as well as to review the updated pathology report. CORINNA
[2019-01-04 10:02] VITALS: BP 141/71
[2019-01-17 09:53] VITALS: BP 126/73
[2019-01-18] MEDS: D5 1/2 NS(*) 1000 ML BAG 1,000 ML IV PRN (10:34)
[2019-01-18 10:40] VITALS: BP 127/72
[2019-01-18] MEDS: LIDOCAINE/SOD BICARB 8.4% SYR ID PRN (10:40)
--- NOTE | 2019-01-19 17:28 | RADIOLOGY IMAGING REPORT ---
FACILITY: [facility] PATIENT NAME: Steffi Ballard : 1950 MR: [id number] V: [id number] EXAM DATE: ORDERING PHYSICIAN: RAINA RAMIRES TECHNOLOGIST: Location: [facility] Patient: Steffi Ballard : 1950 Visit/Account:[id number] Date of Sevice: 01/19/2019 EXAMINATION: Treatment planning CT of the head and neck 01/19/2019 2:30 PM HISTORY: Cancer of the tongue TECHNIQUE: Unenhanced helical imaging was obtained with localizing apparatus for radiation therapy. Source data is only reconstructed in the axial plane. One of the following dose optimization techniques was utilized in the performance of this exam: Autom ated exposure control; adjustment of the mA and/or kV according to the patient's size; or use of an i terative reconstruction technique. Specific details can be referenced in the facility's radiology C T exam operational policy. COMPARISON: None FINDINGS: The primary mass in the tongue is not well-defined on this unenhanced study. There are no nspecific cervical lymph nodes bilaterally. Airways widely patent. No visualized lung nodule. No a cute bony finding. Intracranial contents as visualized are unremarkable. IMPRESSION: Unenhanced CT of the head and neck for treatment planning. Report Dictated By: Marcello Lazo MD at 01/19/2019 5:15 PM Report E-Signed By: Marcello Lazo MD at 01/19/2019 5:23 PM WSN:[id number]
[2019-01-24 10:05] VITALS: BP 134/78
--- NOTE | 2019-01-24 13:40 | Medical Nutrition Therapy ---
Nutritional Education Nutrition Education Topic: Other (Ca) Learning Readiness: Interested Teaching Methods: Discussion, Handout Response to Teaching: Verbalize understanding Teaching Recipient: Patient Nutrition Counseling: Pt reports cont swallowing issues, no appetite, and no taste to foods. Pt states has not had recent wt loss. Pt states is eattin 3 small meals with occasional nutr supplments. Reviewed swallowing difficulites handout. Encouaged pt to try pureeing soups and pt may benefit from pureed or mech ground foods. Encouraged sauces/gravy to moisten foods. Recommend pt drink 1-2 nutr supplments between meals. Nutrition Monitoring & Eval RD Patient Assessment Time: [address] Assessment Type: RD Education Copies To Copies to: RAINA RAMIRES MD ; SWAPNA ARRIAZA Jan 24, 2019 13:40
[2019-01-28] MEDS: D5 1/2 NS(*) 1000 ML BAG 1,000 ML IV PRN (10:03)
[2019-01-28 10:04] VITALS: BP 132/68
--- NOTE | 2019-01-28 15:08 | Medical Nutrition Therapy ---
Nutritional Education Nutrition Education Topic: Other (CA) Teaching Methods: Discussion Response to Teaching: Verbalize understanding Teaching Recipient: Patient Nutrition Counseling: Pt cont swallowing issues with lack of taste. Encouraged snacks, set timer to remind to eat and drink beverage with kcal. Nutrition Monitoring & Eval RD Patient Assessment Time: [address] Assessment Type: RD Education SWAPNA ARRIAZA January 28, 2019 15:08
[2019-01-31 09:47] VITALS: BP 124/88
[2019-01-31] MEDS: D5 1/2 NS(*) 1000 ML BAG 1,000 ML IV PRN (10:30)
[2019-01-31 15:18] VITALS: BP 143/69
[2019-01-31] MEDS: LIDOCAINE/SOD BICARB 8.4% SYR ID PRN (15:50)
[2019-02-02 09:48] VITALS: BP 130/100
[2019-02-02] MEDS: LIDOCAINE/SOD BICARB 8.4% SYR ID PRN (10:01)
[2019-02-02] MEDS: D5 1/2 NS(*) 1000 ML BAG 1,000 ML IV PRN (10:01)
[2019-02-02 11:10] VITALS: BP 130/63
[2019-02-04] MEDS: LIDOCAINE/SOD BICARB 8.4% SYR ID PRN (09:59)
[2019-02-04] MEDS: D5 1/2 NS(*) 1000 ML BAG 1,000 ML IV PRN (09:59)
[2019-02-04 10:02] VITALS: BP 138/73
[2019-02-07 09:51] VITALS: BP 128/89
[2019-02-07] MEDS: LIDOCAINE/SOD BICARB 8.4% SYR ID PRN (09:55)
[2019-02-07] MEDS: D5 1/2 NS(*) 1000 ML BAG 1,000 ML IV PRN (09:55)
[2019-02-09] MEDS: LIDOCAINE/SOD BICARB 8.4% SYR ID PRN (09:47)
[2019-02-09] MEDS: D5 1/2 NS(*) 1000 ML BAG 1,000 ML IV PRN (09:47)
[2019-02-09 09:57] VITALS: BP 129/77
[2019-02-11] MEDS: LIDOCAINE/SOD BICARB 8.4% SYR ID PRN (09:45)
[2019-02-11] MEDS: D5 1/2 NS(*) 1000 ML BAG 1,000 ML IV PRN (09:45)
[2019-02-11 10:39] VITALS: BP 122/77
[2019-02-11 11:28] VITALS: BP 125/76
[2019-02-14] MEDS: LIDOCAINE/SOD BICARB 8.4% SYR ID PRN (09:47)
[2019-02-14] MEDS: D5 1/2 NS(*) 1000 ML BAG 1,000 ML IV PRN (09:48)
[2019-02-14 10:54] VITALS: BP 135/73
[~2019-02-18 09:30] MED LIST changes: +DEXTROSE 5%(*) 100 ML BAG 100 ML IVPB PRN; +FENT1PAT40 TD; +LIDO15SO2 PO; +NS(*) 0.9% 100 ML BAG 100 ML IVPB PRN; +magic mouthwash PO
[2019-02-18 09:39] VITALS: BP 137/68
[2019-02-18] MEDS: LIDOCAINE/SOD BICARB 8.4% SYR ID PRN (09:41)
[2019-02-18] MEDS: D5 1/2 NS(*) 1000 ML BAG 1,000 ML IV PRN (09:41)
== END 2019-02-22 ==
LOC: SPU 09:30
PROVIDERS: ATTEND Radiology Radiation Oncology
DX: Z51.0 Encounter for antineoplastic radiation therapy (principal); C02.9 Malignant neoplasm of tongue, unspecified
CPT/HCPCS: 36415; 77280; 77336; 77386; 96360; G0463; 77290; 77300; 77301; 77334; 77338; 82040; 82247; 82310; 82374; 82435; 82565; 82947; 84075; 84132; 84155; 84295; 84450; 84460; 84520; 99202

== ENCOUNTER → 2019-03-30 | Outpatient (CLI) | payer MEDICARE ==
[2018-06-16 09:36] VITALS: BMI 42.9
[~2019-03-30] MED LIST changes: -DEXTROSE 5%(*) 100 ML BAG 100 ML IVPB PRN; +GABA-549 PO; -NS(*) 0.9% 100 ML BAG 100 ML IVPB PRN
== END ==
LOC: LAB 10:30
PROVIDERS: ATTEND Internal Medicine Nephrology
DX: N18.3 Chronic kidney disease, stage 3 (moderate) (principal)
CPT/HCPCS: 36415; 82040; 82310; 82374; 82435; 82565; 82947; 83735; 84100; 84132; 84295; 84520